=== PATIENT | female | born 1945 | race Caucasian/White ===

== ENCOUNTER → 2020-04-19 | Outpatient (CLI) | payer MEDICARE ==
[~2020-04-19] MED LIST: ATOR40TA59 PO; COLE1TAB2 PO; EZET10TA20 PO; INSU100V37 SQ; LISI-130 PO; METF10007 PO; NAPR-514 PO; SITA100T PO
== END ==
LOC: LAB 13:06
PROVIDERS: ATTEND Internal Medicine Gastroenterology
DX: Z01.812 Encounter for preprocedural laboratory examination (principal); Z12.11 Encounter for screening for malignant neoplasm of colon; Z20.828 Contact with and (suspected) exposure to other viral communicable diseases
CPT/HCPCS: U0003-CS

== ENCOUNTER → 2020-04-22 | Day surgery (SDC) | payer MEDICARE ==
[~2020-04-22] MED LIST changes: +IV RINGERS,LACTATED 1000ML 1,000 ML IV SCH; +LIDOCAINE 2% PF 5 ML VIAL. ONE; +PROPOFOL 10 MG/ML (20ML) VIAL. IV ONE
--- NOTE | 2020-04-22 10:03 | PREOP HP ---
DATE OF SERVICE: DATE OF PROCEDURE: 04/22/2020 REQUESTING PHYSICIAN: Dr. Emily Coe. REASON FOR PROCEDURE: Positive Cologuard. HISTORY OF PRESENT ILLNESS: This is a 75-year-old female who presents today for colonoscopy. She has a family history of polyps in her father, but denies any colon cancer in her family. She had a positive Cologuard and is here for further evaluation. She admits to daily bowel movement and denies any GI review of systems. ALLERGIES: QUINOLONE. MEDICATIONS: 1. Lisinopril. 2. Metformin. 3. Atorvastatin. 4. Colestipol. 5. Tresiba. 6. . 7. Januvia. PAST SURGICAL HISTORY: 1. Appendectomy. 2. Gallbladder removal. 3. Joint replacement. 4. Tonsillectomy. 5. BTL. PAST MEDICAL HISTORY: 1. Diabetes. 2. Hypertension. 3. Hypercholesterolemia. 4. Sleep apnea. 5. Skin cancer. FAMILY MEDICAL HISTORY: Significant for colon polyps in her father. SOCIAL HISTORY: She denies tobacco. She drank alcohol in the past. Denies IV drug abuse. REVIEW OF SYSTEMS: A 13-point review of systems was done. It is positive for: 1. CPAP usage. 2. Urine leakage. 3. Joint pain. 4. Skin cancer. Otherwise, positive as per HPI. PHYSICAL EXAMINATION: VITAL SIGNS: She is afebrile and her vital signs are stable. GENERAL: She is an obese female, in no apparent distress. HEENT: Oropharynx is clear. CARDIOVASCULAR: S1, S2. LUNGS: Clear. ABDOMEN: Normoactive bowel sounds, soft, nontender, nondistended. EXTREMITIES: No edema. NEUROLOGIC: Awake, alert and oriented x 3. ASSESSMENT AND PLAN: 1. Colorectal cancer screening. The risks and benefits of the procedure including bleeding, perforation, non-diagnosis and sedation were explained and she has agreed to proceed. 2. Positive Cologuard. 3. Family history of colon cancer. BRIEN LITTLE MD DR: JUAN DAVID/harinder JOB#: [id number] / [id number]
[2020-04-22 10:07] VITALS: BP 117/62
--- NOTE | 2020-04-27 10:07 | PATHOLOGY ---
[facility] Accession Number: [id number] . 01 Material submitted: . PART A: colon - SIGMOID POLYP BIOPSY. Modifiers: sigmoid PART B: rectum - RECTAL POLYP BIOPSY . 01 Clinical history: . POSITIVE FOR COLOGUARD POLYPS . 02 Diagnosis: A. Large bowel "sigmoid polyp", endoscopic biopsy: - Hyperplastic polyp; negative for dysplasia and malignancy. . B. Large bowel "rectal polyp", endoscopic biopsy: - Hyperplastic polyp; negative for high-grade dysplasia and malignancy. . (MLK:[place]; 04/27/2020) S 04/27/2020 0910 Local . 02 Electronically signed: . Anum Murphy MD, Pathologist NPI- [id number] . 01 Gross description: . A. Received in formalin labeled "Saleem, Stephany, sigmoid polyp BX" is a 0.7 x 0.5 x 0.1 cm aggregate of bajwa-brown soft tissue fragments. The specimen is submitted entirely in A1. . B. Received in formalin labeled "Saleem, Stephany, rectal polyp BX" is a 0.4 x 0.3 x 0.1 cm aggregate of bajwa-brown soft tissue fragments. The specimen is submitted entirely in B1. ([facility]; 04/22/2020) [facility] 04/22/2020 1802 Local . 02 Pathologist provided ICD-10: K63.5, K62.1 . 02 CPT . 322233, [id number] Specimen Comment: A courtesy copy of this report has been sent to [phone], [phone] Specimen Comment: [id number] Specimen Comment: Report sent to / DR SERRATO Performed at: [address], [place], [place] [id number] MD Darien Woods MD Phone: [phone] Performed at: [address] [id number] MD Tushar Dangelo MD Phone: [phone]
== END | disposition home or self-care (01) ==
LOC: ENDOS 07:49
PROVIDERS: ATTEND Internal Medicine Gastroenterology
DX: R19.5 Other fecal abnormalities (principal); K63.5 Polyp of colon; I10 Essential (primary) hypertension; E11.9 Type 2 diabetes mellitus without complications; E78.00 Pure hypercholesterolemia, unspecified; G47.30 Sleep apnea, unspecified; Z85.820 Personal history of malignant melanoma of skin; Z80.0 Family history of malignant neoplasm of digestive organs; Z88.8 Allergy status to other drugs, medicaments and biological substances; Z79.899 Other long term (current) drug therapy
CPT/HCPCS: 45380; J2704; 88305